=== PATIENT | male | born 1980 | race Caucasian/White ===

== ENCOUNTER 2016-07-24 13:55 | Emergency (ER) | payer OTHER, BC ==
[2016-07-24 14:10] VITALS: BP 125/84
--- NOTE | 2016-07-24 14:21 | EDM.PDOC ---
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 As the day went on the pain increased. Pt denies any bulging of the groin, abdomen, or left inguinal region. Denies change in bowel or urinary function. Denies any other injury. 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 - Related Data Allergies/ADRs: Allergies Allergy/AdvReac Type Severity Reaction Status Date / Time No Known Allergies Allergy Verified 07/24/16 14:10 Home Meds: Home Meds Ibuprofen [Advil Migraine] 1 tab PO ASDIRECTED PRN 07/23/15 [History] Past Medical History - Past Health History Medical/Surgical History: Denies Medical/Surgical History Neurological History: Reports: Migraines - Past Surgical History GI Surgical History: Reports: Other (see below) Other GI Surgeries/Procedures: hernia 2004 Social & Family History - Family History Family Medical History: Noncontributory - Tobacco Use Smoking Status *Q: Never Smoker Years of Tobacco use: 10 Packs/Tins Daily: 0.1 - Caffeine Use Caffeine Use: Reports: None - Recreational Drug Use Recreational Drug Use: No - Living Situation & Occupation Occupation: employed ED ROS GENERAL - Review of Systems Review Of Systems: ROS reveals no pertinent complaints other than HPI. ED EXAM, GI/ABD - Physical Exam Exam: See Below Exam Limited By: No limitations General Appearance: alert, WD/WN, no apparent distress Head: atraumatic, normocephalic Neck: normal inspection Respiratory/Chest: no respiratory distress, lungs clear, normal breath sounds, no accessory muscle use, chest non-tender Cardiovascular: regular rate, rhythm GI/Abdominal: normal bowel sounds, soft, no organomegaly, no distention, no abnormal bruit, no mass, tenderness (LLQ, left inguinal). No: guarding, rebound , rigidity (Male) Exam: Normal inspection. No: Hernia, Inguinal lymphadenopathy, Rash Rectal (Males) Exam: Deferred Back Exam: normal inspection, full range of motion. No: CVA tenderness (L), CVA tenderness (R) Extremities: no pedal edema, normal capillary refill, leg pain (left proximal medial thigh, left groin). No: increased warmth Neurological: alert, oriented, CN II-XII intact, normal cognition, normal gait, no motor/sensory deficits Psychiatric: normal affect, normal mood Skin Exam: Warm, Dry, Intact, Normal color, No rash Lymphatic: no adenopathy Course - Vital Signs Last Recorded V/S: Last Vital Signs Temp 36.2 C 07/24/16 14:06 Pulse 77 07/24/16 14:06 Resp 16 07/24/16 14:06 BP 125/84 07/24/16 14:06 Pulse Ox 96 07/24/16 14:06 - Orders/Labs/Meds Orders: Active Orders 24 hr Category Date Time Status DME for Discharge [COMM] Routine Oth 07/24/16 15:21 Ordered Meds: Medications Discontinued Medications Generic Name Dose Route Start Last Admin Trade Name Richi PRN Reason Stop Dose Admin Ibuprofen 800 mg 07/24/16 15:21 07/24/16 15:27 Motrin PO 07/24/16 15:22 800 mg ONETIME ONE Administration Departure - Departure Time of Disposition: 15:20 Disposition: Home, Self-Care 01 Condition: good Clinical Impression: Encounter for assessment of work-related causation of injury Groin strain Qualifiers: Encounter type: initial encounter Laterality: left Qualified Code(s): S76.212A - Strain of adductor muscle, fascia and tendon of left thigh, initial encounter Instructions: Adductor Muscle Strain With [facility] Forms: ED Department Discharge Additional Instructions: Rest and ice packs to left groin as needed. Use crutches until you can walk with minimal discomfort. Rx: Motrin 800mg Follow up in clinic in 7 to 10 days. Return to ER if swelling, bulging, or worsening pain develops, or if you develop abdominal bloating/distention, changes in bowel function, or urinary symptoms. - My Orders Last 24 Hours: My Active Orders 07/24/16 15:21 DME for Discharge [COMM] Routine - Assessment/Plan Last 24 Hours: My Active Orders 07/24/16 15:21 DME for Discharge [COMM] Routine
[2016-07-24] MEDS ORDERED: Ibuprofen 800 MG Tab PO ONE (15:21)
== END 2016-07-24 15:30 | disposition home or self-care (01) ==
LOC: MERGE 13:55 → DL.ED 13:55
DX: S76.212A Strain of adductor muscle, fascia and tendon of left thigh, initial encounter (principal); G43.909 Migraine, unspecified, not intractable, without status migrainosus; X50.0XXA Overexertion from strenuous movement or load, initial encounter; Y99.0 Civilian activity done for income or pay
CPT/HCPCS: 99283; A9270

== ENCOUNTER 2017-06-21 09:44 | Emergency (ER) | payer BC, OTHER ==
[2017-06-21] MEDS ORDERED: Ondansetron 4 MG/2 ML SDV IV ONE (10:17)
[2017-06-21] MEDS ORDERED: Morphine 2 MG/ML Syringe IVPUSH ONE ×2 (10:17→12:35)
[2017-06-21 10:43] LABS: ANION GAP 10.8; CHLORIDE,CL 103 mmol/L (101-111); SODIUM,NA 138 mmol/L (135-145)
[2017-06-21] MEDS ORDERED: Iopamidol 612 MG/ML 100 ML Bottle IVPUSH ONE (10:54)
[2017-06-21 11:03] VITALS: BP 115/70
--- NOTE | 2017-06-22 13:39 | EDM.PDOC ---
ED HPI GENERAL MEDICAL PROBLEM - General Chief Complaint: Abdominal Pain Stated Complaint: APPENDIX [id number] Time Seen by Provider: 06/21/17 10:15 Source of Information: Reports: Patient, RN, RN Notes Reviewed History Limitations: Reports: No Limitations - History of Present Illness INITIAL COMMENTS - FREE TEXT/NARRATIVE: Patient presents to ER with abdominal pain for a couple of weeks. It is getting worse. Last night it was terrible and this a.m.he could not stand up. Pain is 9/ 10. He has had nausea. He has had no vomiting, diarrhea, fever, cough chest pain, shortness of breath or recent illness. Onset: Gradual Duration: Getting Worse Location: Reports: Abdomen Quality: Reports: Ache Severity: Severe Improves with: Reports: None Worsens with: Reports: None Associated Symptoms: Reports: No Other Symptoms - Related Data Allergies Allergy/AdvReac Type Severity Reaction Status Date / Time No Known Allergies Allergy Verified 06/21/17 10:47 Home Meds: Home Meds Ibuprofen [Advil Migraine] 1 tab PO ASDIRECTED PRN 07/23/15 [History] Past Medical History - Past Health History Medical/Surgical History: Denies Medical/Surgical History Neurological History: Reports: Migraines - Past Surgical History GI Surgical History: Reports: Other (See Below) (inguinal hernia repirt in 2002. ) Other GI Surgeries/Procedures: Hernia repair Social & Family History - Family History Family Medical History: Noncontributory - Tobacco Use Smoking Status *Q: Current Some Day Smoker Years of Tobacco use: 15 Packs/Tins Daily: 0.5 - Caffeine Use Caffeine Use: Reports: None - Recreational Drug Use Recreational Drug Use: No - Living Situation & Occupation Occupation: Employed ED ROS GENERAL - Review of Systems Review Of Systems: ROS reveals no pertinent complaints other than HPI. ED EXAM, GI/ABD - Physical Exam Exam: See Below Exam Limited By: No Limitations General Appearance: Alert, WD/WN, No Apparent Distress Eyes: Bilateral: Normal Appearance Ears: Normal External Exam, Normal Canal, Hearing Grossly Normal, Normal TMs Nose: Normal Inspection, Normal Mucosa, No Blood Throat/Mouth: Normal Inspection, Normal Lips, Normal Teeth, Normal Gums, Normal Oropharynx, Normal Voice, No Airway Compromise Head: Atraumatic, Normocephalic Neck: Normal Inspection, Supple, Non-Tender, Full Range of Motion Respiratory/Chest: No Respiratory Distress, Lungs Clear, Normal Breath Sounds, No Accessory Muscle Use, Chest Non-Tender Cardiovascular: Normal Peripheral Pulses, Regular Rate, Rhythm, No Edema, No Gallop, No JVD, No Murmur, No Rub GI/Abdominal Exam: Tender (Male) Exam: Deferred Rectal (Males) Exam: Deferred Back Exam: Normal Inspection, Full Range of Motion, NT Extremities: Normal Inspection, Normal Range of Motion, Non-Tender, Normal Capillary Refill, No Pedal Edema Neurological: Alert, Oriented, CN II-XII Intact, Normal Cognition, Normal Gait, Normal Reflexes, No Motor/Sensory Deficits Psychiatric: Normal Affect, Normal Mood Skin Exam: Warm, Dry, Intact, Normal Color, No Rash Lymphatic: No Adenopathy Course - Vital Signs Last Recorded V/S: Last Vital Signs Temp 97 F 06/21/17 10:01 Pulse 61 06/21/17 11:02 Resp 16 06/21/17 11:02 BP 115/70 06/21/17 11:02 Pulse Ox 98 06/21/17 11:02 - Orders/Labs/Meds Labs: Laboratory Tests 06/21/17 06/21/17 06/21/17 Range/Units 10:08 10:08 10:34 WBC 7.9 (5.0-10.0) 10^3/uL RBC 5.21 (4.6-6.2) 10^6/uL Hgb 16.3 (14.0-18.0) g/dL Hct 47.3 (40.0-54.0) % MCV 90.8 (80-100) fL MCH 31.3 (27.0-34.0) pg MCHC 34.5 (33.0-35.0) g/dL Plt Count 130 L (150-450) 10^3/uL Neut % (Auto) 54.8 (42.2-75.2) % Lymph % (Auto) 31.4 (20.5-50.1) % Bates % (Auto) 10.7 H (2-8) % Eos % (Auto) 3.0 (1.0-3.0) % Baso % (Auto) 0.1 (0.0-1.0) % Sodium 138 (135-145) mmol/L Potassium 3.8 (3.6-5.0) mmol/L Chloride 103 (101-111) mmol/L Carbon Dioxide 28.0 (21.0-31.0) mmol/L Anion Gap 10.8 BUN 16 (7-18) mg/dL Creatinine 0.9 (0.6-1.3) mg/dL Est Cr Clr Drug Dosing 117.16 mL/min Estimated GFR (MDRD) > 60 BUN/Creatinine Ratio 17.77 Glucose 96 (74-105) mg/dL Lactic Acid 1.0 (0.5-2.2) mmol/L Calcium 9.0 (8.4-10.2) mg/dl Total Bilirubin 1.2 H (0.2-1.0) mg/dL AST 23 (10-42) IU/L ALT 33 (10-60) IU/L Alkaline Phosphatase 48 (42-121) IU/L Total Protein 7.0 (6.7-8.2) g/dl Albumin 4.4 (3.2-5.5) g/dl Globulin 2.6 Albumin/Globulin Ratio 1.69 Urine Color (YELLOW) Urine Appearance (CLEAR) Urine pH (5.0-9.0) Ur Specific [place] (1.005-1.030) Urine Protein (NEGATIVE) Urine Glucose (UA) (NEGATIVE) Urine Ketones (NEGATIVE) Urine Occult Blood (NEGATIVE) Urine Nitrite (NEGATIVE) Urine Bilirubin (NEGATIVE) Urine Urobilinogen (0.2-1.0) mg/dL Ur Leukocyte Esterase (NEGATIVE) Urine RBC /HPF Urine WBC (0-5/HPF) /HPF Amorphous Sediment (0/HPF) /HPF Urine Bacteria (0-FEW/HPF) /HPF 06/21/17 Range/Units 11:26 WBC (5.0-10.0) 10^3/uL RBC (4.6-6.2) 10^6/uL Hgb (14.0-18.0) g/dL Hct (40.0-54.0) % MCV (80-100) fL MCH (27.0-34.0) pg MCHC (33.0-35.0) g/dL Plt Count (150-450) 10^3/uL Neut % (Auto) (42.2-75.2) % Lymph % (Auto) (20.5-50.1) % Bates % (Auto) (2-8) % Eos % (Auto) (1.0-3.0) % Baso % (Auto) (0.0-1.0) % Sodium (135-145) mmol/L Potassium (3.6-5.0) mmol/L Chloride (101-111) mmol/L Carbon Dioxide (21.0-31.0) mmol/L Anion Gap BUN (7-18) mg/dL Creatinine (0.6-1.3) mg/dL Est Cr Clr Drug Dosing mL/min Estimated GFR (MDRD) BUN/Creatinine Ratio Glucose (74-105) mg/dL Lactic Acid (0.5-2.2) mmol/L Calcium (8.4-10.2) mg/dl Total Bilirubin (0.2-1.0) mg/dL AST (10-42) IU/L ALT (10-60) IU/L Alkaline Phosphatase (42-121) IU/L Total Protein (6.7-8.2) g/dl Albumin (3.2-5.5) g/dl Globulin Albumin/Globulin Ratio Urine Color Yellow (YELLOW) Urine Appearance Clear (CLEAR) Urine pH 7.5 (5.0-9.0) Ur Specific [place] 1.015 (1.005-1.030) Urine Protein Negative (NEGATIVE) Urine Glucose (UA) Negative (NEGATIVE) Urine Ketones Negative (NEGATIVE) Urine Occult Blood Negative (NEGATIVE) Urine Nitrite Negative (NEGATIVE) Urine Bilirubin Negative (NEGATIVE) Urine Urobilinogen 0.2 (0.2-1.0) mg/dL Ur Leukocyte Esterase Negative (NEGATIVE) Urine RBC Not seen /HPF Urine WBC 0-5 (0-5/HPF) /HPF Amorphous Sediment Occasional (0/HPF) /HPF Urine Bacteria Rare (0-FEW/HPF) /HPF Meds: Medications Discontinued Medications Generic Name Dose Route Start Last Admin Trade Name Freq PRN Reason Stop Dose Admin Iopamidol 100 ml 06/21/17 10:54 06/21/17 11:22 Isovue-300 (61%) IVPUSH 06/21/17 10:55 100 ml ONETIME ONE Administration Morphine Sulfate 2 mg 06/21/17 10:17 06/21/17 10:25 Morphine IVPUSH 06/21/17 10:18 2 mg ONETIME ONE Administration Morphine Sulfate 2 mg 06/21/17 12:35 06/21/17 12:38 Morphine IVPUSH 06/21/17 12:36 2 mg ONETIME ONE Administration Ondansetron HCl 4 mg 06/21/17 10:17 06/21/17 10:22 Zofran IV 06/21/17 10:18 4 mg ONETIME ONE Administration - Radiology Interpretation Free Text/Narrative:: CT Abdomen: Periumbilical hernia See rad report Departure - Departure Time of Disposition: 12:40 Disposition: DC/Tfer to Acute Hospital 02 Condition: Fair Clinical Impression: Periumbilical hernia - Discharge Information Referrals: PCP,Unobtain [Primary Care Provider] - Forms: ED Department Discharge, Interfacility Transfer EMTALA
== END 2017-06-21 12:57 ==
LOC: DL.ED 09:44
DX: K42.9 Umbilical hernia without obstruction or gangrene (principal); F17.210 Nicotine dependence, cigarettes, uncomplicated
CPT/HCPCS: 36415; 74177; 80053; 81001; 83605; 85025; 96374; 96375; 96376; 99285; J2270; J2405; Q9967

== ENCOUNTER 2017-12-13 21:03 | Emergency (ER) | payer BC ==
--- NOTE | 2017-12-13 21:34 | EDM.PDOC ---
ED HPI GENERAL MEDICAL PROBLEM - General Chief Complaint: Head Injury Stated Complaint: HIT IN FACE AND KNOCKED OUT [id number] Time Seen by Provider: 12/13/17 21:20 Source of Information: Reports: Patient History Limitations: Reports: No Limitations - History of Present Illness INITIAL COMMENTS - FREE TEXT/NARRATIVE: This 37 yo male patient was brought to the ED by his after getting hit in the right lower jaw while playing softball. The patient reports he was playing shortstop, caught the ball, tagged the runner and was hit in the right lower jaw. The patient states that bystanders report that he was knocked out for 15- 30 seconds. The patient's teammates took him home. The patient's reports that the patient was off balance when he got home and was feeling nauseated. The patient has right lower jaw pain at this time. The patient also reports generalized right jaw and head pain. Onset: Today Duration: Minutes:, Constant, Improving Location: Reports: Head, Face, Neck Quality: Reports: Ache, Dull Severity: Moderate Improves with: Reports: None Worsens with: Reports: None Context: Reports: Other Associated Symptoms: Reports: No Other Symptoms - Related Data Allergies Allergy/AdvReac Type Severity Reaction Status Date / Time No Known Allergies Allergy Verified 06/21/17 10:47 Home Meds: Home Meds Ibuprofen [Advil Migraine] 1 tab PO ASDIRECTED PRN 07/23/15 [History] Past Medical History - Past Health History Medical/Surgical History: Denies Medical/Surgical History Neurological History: Reports: Migraines - Past Surgical History GI Surgical History: Reports: Other (See Below) (inguinal hernia repirt in 2002. ) Other GI Surgeries/Procedures: Hernia repair Social & Family History - Family History Family Medical History: Noncontributory - Caffeine Use Caffeine Use: Reports: None - Living Situation & Occupation Occupation: Employed ED ROS GENERAL - Review of Systems Review Of Systems: ROS reveals no pertinent complaints other than HPI. ED EXAM, HEAD INJURY - Physical Exam Exam: See Below General Appearance: Alert, WD/WN, Mild Distress Head: Normocephalic, Facial Tenderness (right lower jaw) Nexus Criteria: No: Posterior, Midline Cervical Tenderness, Evidence of Intoxication, Altered Level of Consciousness, Focal Neurological Deficit, Painful Distraction Injuries Eyes: Bilateral Eye: EOMI, Normal Inspection, PERRL Ears: Normal External Exam, Normal Canal, Hearing Grossly Normal, Normal TMs Throat/Mouth: Normal Inspection, Normal Lips, Normal Teeth, Normal Gums, Normal Oropharynx, Normal Voice, No Airway Compromise Neck: Non-Tender, Full Range of Motion, Normal Alignment, Normal Inspection Respiratory: No Respiratory Distress, Lungs Clear, Normal Breath Sounds, No Accessory Muscle Use, Chest Non-Tender Cardiovascular: Normal Peripheral Pulses, Regular Rate, Rhythm, No Edema, No Gallop, No JVD, No Murmur, No Rub GI/Abdominal Exam: Normal Bowel Sounds, Soft, Non-Tender, No Organomegaly, No Distention, No Abnormal Bruit, No Mass (Male) Exam: Deferred Rectal (Males) Exam: Deferred Back Exam: Full Range of Motion, Normal Inspection, NT Extremities: Normal Inspection, Normal Range of Motion, Non-Tender, No Pedal Edema, Normal Capillary Refill 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, No Motor/Sensory Deficits, Alert, Normal Mood/Affect, Oriented x 3 Skin: Normal Color, Warm/Dry - Iván Coma Score Best Eye Response (Iván): (4) Open Spontaneously Best Verbal Response (Gates): (5) Oriented Best Motor Response (Gates): (6) Obeys Commands Iván Total: 15 Course - Vital Signs Last Recorded V/S: Last Vital Signs Temp 36.8 C 12/13/17 22:27 Pulse 60 12/13/17 22:27 Resp 15 12/13/17 22:27 BP 127/88 12/13/17 22:27 Pulse Ox 100 12/13/17 22:27 - Orders/Labs/Meds Orders: Active Orders 24 hr Category Date Time Status Cervical Spine wo Cont [CT] Urgent Exams 12/13/17 21:16 Taken Head wo Cont [CT] Urgent Exams 12/13/17 21:16 Taken Max Facial Sinus wo Cont [CT] Urgent Exams 12/13/17 21:16 Taken Departure - Departure Time of Disposition: 22:55 Disposition: Home, Self-Care 01 Condition: Fair Clinical Impression: Concussion with less than 1 hour loss of consciousness - Discharge Information *PRESCRIPTION DRUG MONITORING PROGRAM REVIEWED*: Not Applicable *COPY OF PRESCRIPTION DRUG MONITORING REPORT IN PATIENT SHANKAR: Not Applicable Instructions: Concussion, Adult, [id number] Forms: ED Department Discharge Care Plan Goals: The patient was advised of the examination and CT results during the visit. The patient was encouraged to take it easy over the next 24 hours. The patient may take Tylenol or ibuprofen as directed for temporary symptom relief. If the patient has any additional symptoms or concerns, the patient should follow-up with his primary care facility or return to the emergency department. - My Orders Last 24 Hours: My Active Orders 12/13/17 21:16 Cervical Spine wo Cont [CT] Urgent Head wo Cont [CT] Urgent Max Facial Sinus wo Cont [CT] Urgent - Assessment/Plan Last 24 Hours: My Active Orders 12/13/17 21:16 Cervical Spine wo Cont [CT] Urgent Head wo Cont [CT] Urgent Max Facial Sinus wo Cont [CT] Urgent
[2017-12-13 22:28] VITALS: BP 127/88
== END 2017-12-13 23:05 | disposition home or self-care (01) ==
LOC: DL.ED 21:03
DX: S06.0X9A Concussion with loss of consciousness of unspecified duration, initial encounter (principal); W22.8XXA Striking against or struck by other objects, initial encounter; Y93.64 Activity, baseball
CPT/HCPCS: 70450; 70486; 72125; 99284

== ENCOUNTER 2022-04-15 10:26 | Emergency (ER) | payer OTHER ==
[2022-04-15] MEDS ORDERED: Sodium Chloride 0.9% 10 ML Syringe FLUSH PRN (10:47)
[2022-04-15 10:54] VITALS: BP 131/91; PULSE 78
[2022-04-15] MEDS ORDERED: Dexamethasone 4 MG/ML SDV IVPUSH ONE (11:24)
[2022-04-15] MEDS ORDERED: Meclizine 12.5 MG Tab PO ONE (11:24)
[2022-04-15 11:31] LABS: PTT,PARTIAL THROMBOPLSTIN TIME 22.8 SEC (22.0-34.0)
== END 2022-04-15 12:33 | disposition home or self-care (01) ==
LOC: DL.ED 10:26
DX: H65.01 Acute serous otitis media, right ear (principal); F17.210 Nicotine dependence, cigarettes, uncomplicated; Z88.2 Allergy status to sulfonamides; Z88.1 Allergy status to other antibiotic agents
CPT/HCPCS: 36415; 71045; 80053; 83735; 84443; 84484; 85025; 85379; 85610; 85730; 93005; 96374; 96375; 99284; A9270; J1100; J3360; J3490